=== PATIENT | male | born 1975 | race Caucasian/White ===

== ENCOUNTER 2018-12-07 07:37 | Outpatient (CLI) | payer OTHER ==
[~2018-12-07 07:37] MED LIST: LEVSIN/SL0.125 MG SL; PEPCID40 MG PO; XANAX1 MG
== END 2018-12-07 07:40 | disposition home or self-care (01) ==
LOC: SONOGRAMA 07:37
DX: E04.1 Nontoxic single thyroid nodule (principal)

== ENCOUNTER 2019-10-18 00:24 | Emergency (ER) | payer OTHER ==
[~2019-10-18] VITALS: Ht 170.2 cm; Wt 68.0 kg
[2019-10-18] MEDS ORDERED: CLARITIN (00:39)
[2019-10-18] MEDS ORDERED: BENADRYL 50 MG (00:40)
[2019-10-18] MEDS ORDERED: MEDROL8 MG PO (03:17)
[2019-10-18] MEDS ORDERED: BENADRYL25 MG PO (03:17)
[2019-10-18] MEDS ORDERED: PEPCID40 MG PO (03:17)
== END 2019-10-18 03:55 | disposition home or self-care (01) ==
LOC: ER 00:24
DX: L29.8 Other pruritus (principal); T60.2X1A Toxic effect of other insecticides, accidental (unintentional), initial encounter; Y92.89 Other specified places as the place of occurrence of the external cause

== ENCOUNTER 2022-08-06 18:22 | Emergency (ER) | payer OTHER ==
[~2022-08-06] VITALS: Ht 170.2 cm; Wt 68.5 kg
[~2022-08-06 18:22] MED LIST changes: +BENADRYL 50 MG; +BENADRYL25 MG PO; +CLARITIN; +MEDROL8 MG PO
[2022-08-06] MEDS ORDERED: COZAAR25 MG PO (19:03)
== END 2022-08-06 21:26 | disposition home or self-care (01) ==
LOC: ER 18:22
DX: R00.2 Palpitations (principal); F41.8 Other specified anxiety disorders; F43.0 Acute stress reaction; Z91.013 Allergy to seafood